=== PATIENT | female | born 1990 | race Caucasian/White ===

== ENCOUNTER 2017-07-15 08:39 | Emergency (ER) ==
[2017-07-15 08:43] VITALS: BP 148/78; TEMP 97.8; BMI 38.2
[2017-07-15 09:12] LABS: BILIRUBIN,URINE Negative (NEGATIVE); KETONES,URINE Negative (NEGATIVE); LEUKOCYTE ESTERASE ,URINE Negative (NEGATIVE); NITRITE,URINE Negative (NEGATIVE); PH,URINE 5.5 (5-9); PROTEIN,URINE Trace (NEGATIVE); URINE, BLOOD 2+ (NEGATIVE)
[2017-07-15 09:18] LABS: ADD URINE MICROSCOPIC YES
[2017-07-15 09:21] LABS: BACTERIA,URINE TRACE (NOT PRESENT)
[2017-07-15 09:25] LABS: URINE PREGNANCY INTERNAL QC INTERNAL QC VALID
[2017-07-15] MEDS ORDERED: MORPHINE 4 MG/ML SYRINGE IM STA (09:25)
[2017-07-15] MEDS ORDERED: TORADOL IM STA (09:25)
[2017-07-15] MEDS ORDERED: ZOFRAN 4 MG/2 ML IM STA (09:25)
[2017-07-15 09:53] LABS: BASOPHILS % (AUTO) 0.5 % (0.0-3.0); EOSINOPHILS # (AUTO) 0.1 K/ul (0.0-0.7); HEMATOCRIT 40.6 % (37.0-47.0); HEMOGLOBIN 13.7 g/dl (12.0-16.0); IMMATURE GRANULOCYTE % (AUTO) 0.3 % (0.0-5.0); LYMPHOCYTES # (AUTO) 1.8 K/uL (0.60-3.4); LYMPHOCYTES % (AUTO) 23.7 (10.0-50.0); MEAN CORPUSCULAR HEMOGLOBIN 30.6 pg (27.0-31.0); MEAN CORPUSCULAR HGB CONC 33.7 (31.8-35.4); MEAN CORPUSCULAR VOLUME 90.6 fl (81.0-99.0); MONOCYTES # (AUTO) 0.5 K/uL (0.4-2.0); MONOCYTES % (AUTO) 6.3 (0-10); NEUTROPHILS # (AUTO) 5.2 K/ul (2.0-6.9); NEUTROPHILS % (AUTO) 68.2; PLATELET COUNT 237 10^3/uL (140-440); RED BLOOD COUNT 4.48 10^6/ul (4.20-5.40); WHITE BLOOD COUNT 7.64 K/ul (4.6-10.2)
--- NOTE | 2017-07-15 10:16 | CT ---
EXAM: Noncontrast CT of the abdomen and pelvis. HISTORY: Flank pain. Hematuria. Nausea. COMPARISON: None. TECHNIQUE: Contiguous axial images at 3 mm intervals were obtained from lung bases through the pelv is. No contrast was given. Coronal reformats were reviewed. FINDINGS: The study is limited without contrast. CHEST: The lung bases show no lobar consolidation or effusion. The heart size is within normal lion its. ABDOMEN: Evaluation of the soft tissue organs is limited without contrast. LIVER: Noncontrast images of the liver show no solid mass lesion or intrahepatic ductal dilatation. BILIARY: The gallbladder is normally distended. No gallstones are noted. No pericholecystic fluid or inflammation. The common bile duct is normal. SPLEEN: The spleen is unremarkable. PANCREAS: The pancreas shows no mass lesion or peripancreatic inflammation. ADRENAL GLANDS: The adrenal glands are normal. RENAL: There is mild right hydronephrosis and hydroureter. Mild periureteral fat stranding is seen. This is secondary to a 4 mm calcification in the distal ureter at the ureteral vesicle junction. No solid mass lesions are identified. RETROPERITONEUM: The aorta is unopacified. No aneurysm is identified. No aortic calcifications ar e seen. There is no retroperitoneal or mesenteric adenopathy. BOWEL: The bowel is unopacified. There are postoperative changes in the stomach. There is no obst ruction or inflammatory change. There is no free fluid or free air. No significant inflammatory c hanges are seen. The appendix is identified and is normal. PELVIS: BLADDER: The bladder is not well distended which limits evaluation.. GENITOURINARY STRUCTURES: The uterus and ovaries are unremarkable. OSSEOUS STRUCTURES: The osseous structures are normal for age. IMPRESSION 1. Mild right hydronephrosis and hydroureter secondary to a 4 mm distal right ureteral stone at the ureteral vesicle junction. 2. The appendix is normal.
[2017-07-15] MEDS ORDERED: FLOMAX PO STA (10:20)
--- NOTE | 2017-07-15 10:23 | ED.PDOC ---
General ED Provider: Dr. SAVANNA ESCOBEDO-ER Chief Complaint: Urinary Problem Stated Complaint: im hurting on my right side when i try to pee Time Seen by Physician: 08:40 Mode of Arrival: Walk-In Information Source: Patient Exam Limitations: No limitations Primary Care Provider: SAVANNA ESCOBEDO Nursing and Triage Documentation Reviewed and Agree: Yes GI Complaint Exam - Abdominal Pain Complaint/Exam Onset: Gradual Duration: this am Symptoms Are: Still present Timing: Constant Initial Severity: Mild Current Severity: Moderate Location of Pain: Discrete, RLQ Radiates To: Reports: Flank Character: Reports: Dull, Aching Alleviating: Reports: None Associated Signs and Symptoms: Reports: Back pain. Denies: Diaphoresis, Fever, Cough, Chest pain, Dizziness, Constipation, Blood in stool, Dysuria, Urinary frequency, Decreased urine output, Decreased appetite, Vaginal bleeding, Vaginal discharge, Nausea, Vomiting, Diarrhea, Sore throat, Decreased activity Related History: Reports: Similar episode AAA Risk Factors: Reports: None Ectopic Risk Factors: Reports: None Ovarian Torsion Risk Factors: Reports: Reproductive age Patient Rh Status: Unknown Abdominal Findings: Present: None Differential Diagnoses: Renal Colic, Ureteral Stone Review of Systems - Review Of Systems Constitutional: Reports: No symptoms Eyes: Reports: No symptoms Ears, Nose, Mouth, Throat: Reports: No symptoms Respiratory: Reports: No symptoms Cardiac: Reports: No symptoms GI: Reports: Abdominal pain : Reports: No symptoms Musculoskeletal: Reports: No symptoms Skin: Reports: No symptoms Neurological: Reports: No symptoms Endocrine: Reports: No symptoms Hematologic/Lymphatic: Reports: No symptoms All Other Systems: Reviewed and Negative Past Medical History - Past Medical History Previously Healthy: Yes Endocrine: Reports: Unknown Cardiovascular: Reports: Unknown Respiratory: Reports: Unknown Hematological: Reports: Unknown Gastrointestinal: Reports: Unknown Genitourinary: Reports: Unknown Neuro/Psych: Reports: Unknown Musculoskeletal: Reports: Unknown Cancer: Reports: Unknown Last Menstrual Period: 1 DAY AGO - Surgical History General Surgical History: Reports: Other - Family History Family History: Reports: Unknown - Social History Smoking Status: Never smoker Hx Substance Use: No Alcohol Screening: None Lives: With family Physical Exam - Physical Exam Appearance: Well-appearing, No pain distress, Well-nourished Eyes: RUSS, EOMI, Conjunctiva clear ENT: Ears normal, Nose normal, Oropharynx normal Neck: Supple Respiratory: Airway patent, Breath sounds clear, Breath sounds equal, Respirations nonlabored Cardiovascular: RRR, Pulses normal, No rub, No murmur GI/: Soft, Nontender, No masses, Bowel sounds normal, No Organomegaly Musculoskeletal: Normal strength Skin: Warm Neurological: Sensation intact, Motor intact, Reflexes intact, Cranial nerves intact, Alert, Oriented Psychiatric: Affect appropriate Interpretation - Radiology Interpretation Radiology Interpretation By: Radiologist Radiology Results: Positive Exam Interpreted: CT Scan ("4mm stone right ureter") Re-Evaluation - Re-Evaluation Time of Re-Evaluation: 10:24 Status: Improved Vital Signs Stable: Yes Pain Level: 2 Appearance: NAD Lungs: Clear Skin: Warm and Dry Neuro: Alert and Oriented X3 CV: RRR Critical Care Note - Critical Care Note Total Time (mins): 0 Course - Course Hematology/Chemistry: 07/15/17 09:40 Orders, Labs, Meds: Lab Review 07/15/17 07/15/17 07/15/17 08:48 08:55 09:40 WBC 7.64 RBC 4.48 Hgb 13.7 Hct 40.6 MCV 90.6 MCH 30.6 MCHC 33.7 RDW Coeff of Dieudonne 11.9 Plt Count 237 Immature Gran % (Auto) 0.3 Neut % (Auto) 68.2 Lymph % (Auto) 23.7 [place] % (Auto) 6.3 Eos % (Auto) 1.0 Baso % (Auto) 0.5 Immature Gran # (Auto) 0.0 Neut # 5.2 Lymph # 1.8 Sherman # 0.5 Eos # 0.1 Baso # 0.0 Urine Color Yellow Urine Clarity Clear Urine pH 5.5 Ur Specific [place] >=1.030 Urine Protein Trace Urine Glucose (UA) Negative Urine Ketones Negative Urine Blood 2+ Urine Nitrite Negative Urine Bilirubin Negative Urine Urobilinogen 0.2 Ur Leukocyte Esterase Negative Urine Microscopic RBC 2-5 Urine Microscopic WBC 0-2 Ur Squamous Epith Cells 0-2 Urine Bacteria Trace Urine Test Negative Orders Category Date Time Status AMYLASE Stat LAB 07/15/17 09:40 Received CBC W/ AUTO DIFF Stat LAB 07/15/17 09:40 Completed COMPREHENSIVE METABOLIC PANEL Stat LAB 07/15/17 09:40 Received LIPASE Stat LAB 07/15/17 09:40 Received URINALYSIS C & S IF INDICATED Stat LAB 07/15/17 08:55 Completed URINE CULTURE Stat LAB 07/15/17 08:48 Received URINE Stat LAB 07/15/17 08:48 Completed Ketorolac Tromethamine [Toradol] MEDS 07/15/17 09:25 Discontinued 60 mg IM ONCE STA Morphine Sulfate [Morphine 4 mg/ml Syringe] MEDS 07/15/17 09:25 Discontinued 4 mg IM ONCE STA Ondansetron HCl/Pf [Zofran 4 mg/2 ml] MEDS 07/15/17 09:25 Discontinued 4 mg IM ONCE STA Tamsulosin HCl [Flomax] MEDS 07/15/17 10:20 Stat 0.4 mg PO ONCE STA CT ABDOMEN/PELVIS WO CONTRAST Stat RADS 07/15/17 09:26 Completed Medications Generic Name Dose Route Start Last Admin Trade Name Freq PRN Reason Stop Dose Admin Tamsulosin HCl 0.4 mg 07/15/17 10:20 Flomax PO 07/15/17 10:21 ONCE STA Discontinued Medications Generic Name Dose Route Start Last Admin Trade Name Freq PRN Reason Stop Dose Admin Ketorolac Tromethamine 60 mg 07/15/17 09:25 07/15/17 09:45 Toradol IM 07/15/17 09:26 60 mg ONCE STA Administration Morphine Sulfate 4 mg 07/15/17 09:25 07/15/17 09:48 Morphine 4 Mg/Ml Syringe IM 07/15/17 09:26 4 mg ONCE STA Administration Ondansetron HCl 4 mg 07/15/17 09:25 07/15/17 09:48 Zofran 4 Mg/2 Ml IM 07/15/17 09:26 4 mg ONCE STA Administration Vital Signs: Temp Pulse Resp BP Pulse Ox 07/15/17 08:39 97.8 F 56 L 20 148/78 H 98 Departure - Departure Time of Disposition: 10:24 Disposition: HOME SELF-CARE Discharge Problem: Ureteral stone Instructions: Ureteral Stones (ED) Condition: Good Pt referred to PMD for follow-up: Yes Additional Instructions: percocet 5mg 1-2 tabs q 6hrs prn pain#12---flomax 0.4 q daily x 2 days--strain all urine--recheck with me in 48hrs if not passed--sooner if uncontrolled pain or temp over 100.5 Allergies/Adverse Reactions: Allergies No Known Allergies Allergy (Verified 07/15/17 08:43) Home Medications: Ambulatory Orders 1 [No Reported Medications] 07/15/17 Disposition Discussed With: Patient, Family
[2017-07-15 10:27] LABS: ALBUMIN 3.7 g/dL (3.4-5.0); ALBUMIN/GLOBULIN RATIO 1.12; ANION GAP 14.6; BILIRUBIN,TOTAL 0.48 mg/dL (0.00-1.20); BUN/CREATININE RATIO 17.44; CALCIUM 9.4 mg/dL (8.2-10.2); CREATININE 0.86 mg/dL (0.60-1.30); POTASSIUM 3.6 mmol/L (3.5-5.10)
== END 2017-07-15 10:39 | disposition home or self-care (01) ==
LOC: ED 08:39
DX: N20.1 Calculus of ureter (principal)
CPT/HCPCS: 36415; 80053; 81001; 81025; 82150; 83690; 85025; 87086; 96372; 99283

== ENCOUNTER 2018-12-09 10:44 | Outpatient (CLI) | END 2018-12-09 10:45 | disposition home or self-care (01) | LOC: RHC-LAB 10:44 → FCC-LAB 10:45 | PROVIDERS: ATTEND Family Medicine | DX: J02.9 Acute pharyngitis, unspecified (principal) | CPT/HCPCS: 87651 ==